=== PATIENT | male | born 1985 | race Caucasian/White ===

== ENCOUNTER → 2021-06-07 | Outpatient (CLI) | payer BC | LOC: LAB 09:40 → LAB SHORT 09:40 | DX: L08.9 Local infection of the skin and subcutaneous tissue, unspecified (principal) | CPT/HCPCS: 87070; 87077; 87147; 87186; 87205 ==

== ENCOUNTER 2023-08-21 10:06 | Day surgery (SDC) | payer OTHER ==
[~2023-08-21] VITALS: Ht 182.9 cm; Wt 100.4 kg
[~2023-08-21 10:06] MED LIST: CIPR750 PO; LISI20 PO; LORA.5 PO; Lactated Ringer's 1,000 ML IV ONE; METR500; propofoL 50 ML IV ONE
[2023-08-21] MEDS ORDERED: [UNRECOGNIZED DRUG - OTHER] (10:26)
[2023-08-21] MEDS ORDERED: HYDHCL25 (10:26)
[2023-08-21] MEDS ORDERED: MULVITA (10:26)
[2023-08-21] MEDS ORDERED: Lactated Ringer's 1,000 ML IV ONE (11:30)
[2023-08-21] MEDS ORDERED: Midazolam HCL 1 MG/ML 5MLVIAL ONE (11:44)
[2023-08-21 12:57] VITALS: BP 112/68
== END 2023-08-21 12:45 | disposition home or self-care (01) ==
LOC: ORSCSDS 10:06
PROVIDERS: Internal Medicine Gastroenterology
PROC: 0DJD8ZZ Inspection of Lower Intestinal Tract, Via Natural or Artificial Opening Endoscopic (ICD-10-PCS; principal; 2023-08-21 11:15)
DX: Z87.19 Personal history of other diseases of the digestive system (principal); Z83.719 Family history of colon polyps, unspecified; K57.30 Diverticulosis of large intestine without perforation or abscess without bleeding; I10 Essential (primary) hypertension
CPT/HCPCS: J2250; J2704; J7120

== ENCOUNTER → 2024-04-13 | Outpatient (CLI) | payer OTHER ==
[~2024-04-13] MED LIST changes: +HYDHCL25; -Lactated Ringer's 1,000 ML IV ONE; +MULVITA; +[UNRECOGNIZED DRUG - OTHER]; -propofoL 50 ML IV ONE
[2024-04-13 08:19] LABS: BASOPHILS ABSOLUTE AUTO 0.03 K/mm3 (0.00-0.23); BASOPHILS PERCENT AUTO 1 % (0-2); EOSINOPHILS ABSOLUTE AUTO 0.08 K/mm3 (0.00-0.68); EOSINOPHILS PERCENT AUTO 2 % (0-6); Hematocrit 37.5 % (37.0-53.0); Hemoglobin 12.7 g/dL (13.5-17.5); IMMATURE GRAN ABSOLUTE AUTO 0.02 K/mm3 (0.00-0.10); IMMATURE GRAN PERCENT AUTO 0 % (0-1); LYMPHOCYTES PERCENT AUTO 35 % (21-46); MONOCYTES ABSOLUTE AUTO 0.48 K/mm3 (0.16-1.47); MONOCYTES PERCENT AUTO 10 % (4-13); Mean Corpuscular HGB 28.2 pg (26.0-34.0); Mean Corpuscular HGB Conc 33.9 g/dL (31.5-36.5); Mean Corpuscular Volume 83 fL (80-100); Mean Platelet Volume 8.9 fL (9.1-12.4); NEUTROPHILS ABSOLUTE AUTO 2.62 K/mm3 (1.96-9.15); NEUTROPHILS PERCENT AUTO 53 % (41-73); Platelet Count 262 K/mm3 (150-400); RDW Coefficient Variation 12.5 % (11.7-14.2); RDW Standard Deviation 38.3 fL (35.1-46.3); White Blood Cell Count 4.93 K/mm3 (4.00-11.30)
[2024-04-13 08:37] LABS: Albumin, Blood 3.8 g/dL (3.4-5.0); Albumin/Globulin Ratio 1.1 (0.8-1.8); Bilirubin, Total 0.3 mg/dL (0.1-1.0); Bun/Creatinine Ratio 10.3 (12.0-20.0); Calcium, Blood 9.1 mg/dL (8.5-10.1); Creatinine, Blood 0.97 mg/dL (0.60-1.20); Globulin, Blood 3.4 g/dL (2.2-4.0); Potassium, Blood 4.6 mmol/L (3.5-5.5); Total Protein, Blood 7.2 g/dL (6.4-8.2)
== END | disposition home or self-care (01) ==
LOC: LAB SHORT 08:14 → LAB 08:14
PROVIDERS: Physician Assistant
DX: R10.9 Unspecified abdominal pain (principal)
CPT/HCPCS: 80053; 83690; 85025